=== PATIENT | female | born 1960 | race Caucasian/White ===

== ENCOUNTER 2018-07-04 21:40 | Emergency (ER) | payer OTHER ==
[~2018-07-04] VITALS: Ht 160 cm; Wt 81.0 kg
--- NOTE | 2018-07-04 22:22 | NUR ---
PT. TO ED WITH C/O NO BM X 3 DAYS. PT. C/O MILD ABD DISCOMFORT. DENIES N/V. REPORTS USING PO STOOL SOFTENERS AND SUPPOSITORY TODAY WITH NO RESULTS. DENIES ANY FURTHER COMPLAINTS. AWAITING PROVIDER EVAL. CALL LIGHT IN REACH. ALL SAFETY MEASURES OBSERVED.
[2018-07-04 23:29] VITALS: BP 166/77
--- NOTE | 2018-07-04 23:39 | NUR ---
DR. CHARLES IN TO DISCUSS D/C PLAN WITH PT.
== END 2018-07-04 23:41 | disposition home or self-care (01) ==
LOC: ED 22:32
DX: K59.00 Constipation, unspecified (principal)
CPT/HCPCS: 74021; 99283